=== PATIENT | female | born 1975 | race Caucasian/White ===

== ENCOUNTER → 2022-10-06 | Outpatient (REF) | payer BC | LOC: M LABCFH 13:31 | PROVIDERS: ATTEND Physician Assistant | DX: Z12.4 Encounter for screening for malignant neoplasm of cervix (principal) ==

== ENCOUNTER → 2022-10-20 | Outpatient (CLI) | payer BC | LOC: M WHC 12:30 | PROVIDERS: ATTEND Physician Assistant | DX: Z12.31 Encounter for screening mammogram for malignant neoplasm of breast (principal) ==

== ENCOUNTER → 2025-04-09 | Outpatient (CLI) | payer BC | LOC: M WHC 09:15 | PROVIDERS: ATTEND Physician Assistant | DX: Z12.31 Encounter for screening mammogram for malignant neoplasm of breast (principal) ==